=== PATIENT | male | born 1960 | race Caucasian/White ===

== ENCOUNTER → 2020-02-22 | Outpatient (CLI) | payer BC ==
[~2020-02-22] MED LIST: AMOCLA500 PO; AMOX500 PO; CIPR500 PO; CODGUAEL PO; HYDACE10 PO; HYDACE5 PO; IBUP800 PO; META800 PO; PENVK500 PO; PSEU120ER PO; TAMS.4ER PO; Ultram50 MG PO; [UNRECOGNIZED DRUG - OTHER]
[2020-02-22 10:15] LABS: Hematocrit 41.8 % (37.0-53.0); Hemoglobin 14.3 g/dL (13.5-17.5); Mean Corpuscular HGB 31.8 pg (26.0-34.0); Mean Corpuscular HGB Conc 34.2 g/dL (31.5-36.5); Mean Corpuscular Volume 93 fL (80-100); Mean Platelet Volume 10.3 fL (9.1-12.4); Platelet Count 210 K/mm3 (150-400); RDW Coefficient Variation 12.6 % (11.7-14.2); RDW Standard Deviation 42.8 fL (35.1-46.3); White Blood Cell Count 5.19 K/mm3 (4.00-11.30)
[2020-02-22 10:36] LABS: Alanine Aminotransfer (ALT/SGP 29 U/L (12-78); Albumin, Blood 3.7 g/dL (3.4-5.0); Albumin/Globulin Ratio 1.2 (0.8-1.8); Alk Phos 107 U/L (40-126); Anion Gap 4 mmol/L (6-16); Aspartate Aminotrans (AST/SGOT 17 U/L (12-37); Bilirubin, Total 0.8 mg/dL (0.1-1.0); Blood Urea Nitrogen 15 mg/dL (8-24); Bun/Creatinine Ratio 15.3 (12.0-20.0); CHOL/HDL RATIO 2.3; CO2, Blood 32 mmol/L (21-32); Calcium, Blood 9.2 mg/dL (8.5-10.1); Chloride, Blood 104 mmol/L (98-108); Cholesterol 185 mg/dL (50-200); Creatinine, Blood 0.98 mg/dL (0.60-1.20); Globulin, Blood 3.1 g/dL (2.2-4.0); Glomerular Filtration Rate >60 (60-); Glucose, Blood 100 mg/dL (70-99); HDL Cholesterol 79 mg/dL (>39); LDL/HDL RATIO 1.3; Low Density Lipoprotein Chol 100 mg/dL (<110); Potassium, Blood 4.7 mmol/L (3.5-5.5); Sodium, Blood 140 mmol/L (136-145); Total Protein, Blood 6.8 g/dL (6.4-8.2); Triglycerides 31 mg/dL (30-160); Very Low Density Lipoprot Chol 6 mg/dL (6-32)
== END | disposition home or self-care (01) ==
LOC: LAB EV 10:06 → LAB SHORT 10:06
PROVIDERS: Family Medicine
DX: Z13.9 Encounter for screening, unspecified (principal); Z91.89 Other specified personal risk factors, not elsewhere classified
CPT/HCPCS: 80053; 80061; 85027; 86803; G0103

== ENCOUNTER 2020-07-09 12:35 | Day surgery (SDC) | payer BC ==
[~2020-07-09] VITALS: Ht 167.6 cm; Wt 65.1 kg
== END 2020-07-09 14:40 | disposition home or self-care (01) ==
LOC: ORSCSDS 12:35
DX: Z12.11 Encounter for screening for malignant neoplasm of colon (principal); D12.2 Benign neoplasm of ascending colon; D12.0 Benign neoplasm of cecum; K62.1 Rectal polyp; K57.30 Diverticulosis of large intestine without perforation or abscess without bleeding; K64.8 Other hemorrhoids
CPT/HCPCS: 88305; J2704; J7120

== ENCOUNTER 2020-10-21 19:27 | Emergency (ER) | payer BC ==
[~2020-10-21] VITALS: Ht 167.6 cm; Wt 67.1 kg
== END 2020-10-21 20:30 | disposition home or self-care (01) ==
LOC: ER 19:27
DX: S61.012A Laceration without foreign body of left thumb without damage to nail, initial encounter (principal); W27.8XXA Contact with other nonpowered hand tool, initial encounter; Y93.D3 Activity, furniture building and finishing
CPT/HCPCS: 12001; 99282-25

== ENCOUNTER 2021-05-15 17:59 | Emergency (ER) | payer BC ==
[~2021-05-15] VITALS: Ht 167.6 cm; Wt 70.3 kg
== END 2021-05-15 19:04 | disposition home or self-care (01) ==
LOC: ER 17:59
DX: U07.1 COVID-19 (principal); R51.9 Headache, unspecified
CPT/HCPCS: 99284; A9270